=== PATIENT | male | born 1985 | race Caucasian/White ===

== ENCOUNTER → 2019-09-12 | Day surgery (SDC) | payer MEDICAID ==
[2019-09-08 11:54] VITALS: BMI 27.9
[~2019-09-12] MED LIST: LACTATED RINGERS 1,000 ML IV SCH; LIDOCAINE 1% (10MG/ML) FOR IV START INTRADERMA ONE; LIDOCAINE 1% INJ 10MG/ML (20 ML MDV) ONE; PROPOFOL 10 MG/ML 20 ML VIAL IV ONE
[2019-09-12 08:44] VITALS: TEMP 97.5
--- NOTE | 2019-09-12 09:28 | P.GSHP ---
History of Present Illness H&P Date: 09/12/19 Chief Complaint: Hypercoagulable state Patient here today for upper and lower endoscopy. Patient had a pulmonary embolism in August of this year. Here today for workup for possible source of the problem. Father had esophageal cancer. Patient without complaints. Denies rec adair bleeding or melena. Brother has a history of colon polyps. Past Medical History Past Medical History: Pulmonary Embolus (PE) Additional Past Medical History / Comment(s): PE September 2018-unknown reason, family hx. of polyps History of Any Multi-Drug Resistant Organisms: None Reported Additional Past Surgical History / Comment(s): wisdom teeth removed Past Anesthesia/Blood Transfusion Reactions: No Reported Reaction Smoking Status: Former smoker - Past Family History Brother(s) Family Medical History: Myocardial Infarction ([place]) Additional Family Medical History / Comment(s): [place] @26 Medications and Allergies Home Medications Medication Instructions Recorded Confirmed Type Rivaroxaban [Xarelto] 20 mg PO DAILY 09/08/19 09/12/19 History Allergies Allergy/AdvReac Type Severity Reaction Status Date / Time acetaminophen [From Vicodin] Allergy Nausea & Verified 09/08/19 11:37 Vomiting hydrocodone [From Vicodin] Allergy Nausea & Verified 09/08/19 11:37 Vomiting Surgical - Exam Vital Signs Temp Pulse Resp BP Pulse Ox 97.5 F L 68 16 150/91 100 09/12/19 08:42 09/12/19 08:42 09/12/19 08:42 09/12/19 08:42 09/12/19 08:42 Physical exam: General: Well-developed, well-nourished HEENT: Normocephalic, sclerae nonicteric Abdomen: Nontender, nondistended Extremities: No edema Neuro: Alert and oriented Assessment and Plan (1) Hypercoagulable state Current Visit: Yes Status: Acute Code(s): D68.59 - OTHER PRIMARY THROMBOPHILIA SNOMED Code(s): 58710208
--- NOTE | 2019-09-12 09:47 | P.PCN ---
Date of Procedure: 09/12/19 Procedure(s) Performed: PREOPERATIVE DIAGNOSIS: Hypercoagulable state POSTOPERATIVE DIAGNOSIS: Gastritis, diverticulosis, sigmoid colon polyp PROCEDURE: 1. EGD with biopsy 2. Colonoscopy with snare polypectomy ANESTHESIA: MAC SURGEON: Julio Anthony M.D. SPECIMENS: Antrum, sigmoid colon polyp ENDOSCOPIC PROCEDURE: The patient was on the endoscopy table in the left decubitus position. The Olympus gastroscope was inserted into the oropharynx and passed under direct visualization to the region of the third portion of the duodenum. From that point the scope was slowly withdrawn inspecting all surfaces carefully. There were no neoplastic inflammatory or polypoid lesions throughout the duodenum. The pylorus was widely patent. The stomach was carefully inspected. There was mild gastritis present. A biopsy of the antrum took place to rule out H. pylori. Retroflexion revealed a normal hiatus. The esophagus was then carefully examined. There were no neoplastic inflammatory or polypoid lesions throughout the visualized esophagus. The patient was kept on the endoscopy table in the left decubitus position. The Olympus colonoscope was inserted into the anus and passed under direct visualization to the base of the cecum. The appendiceal orifice was visualized. From that point the scope was slowly withdrawn inspecting all surfaces carefully. There were no neoplastic inflammatory or polypoid lesions throughout the cecum, ascending, transverse, and descending colon. In the sigmoid at 35 cm a pedunculated polyp was identified and removed using the snare with cautery technique. The remainder of the sigmoid and rectum appeared normal. There was mild diverticulosis. Digital rectal examination was normal. The patient was taken to the recovery room in stable condition per anesthesia guidelines. RECOMMENDATIONS: Await biopsy results. Continue workup of the patient's recent pulmonary embolism.
[2019-09-12 10:10] VITALS: BP 127/85; PULSE 64; RESP 18
== END ==
LOC: ORWHC2ENDO 08:31
PROVIDERS: ATTEND Surgery
DX: D12.5 Benign neoplasm of sigmoid colon (principal); K57.30 Diverticulosis of large intestine without perforation or abscess without bleeding; K29.50 Unspecified chronic gastritis without bleeding; Z86.711 Personal history of pulmonary embolism; Z87.891 Personal history of nicotine dependence; Z82.49 Family history of ischemic heart disease and other diseases of the circulatory system; Z80.0 Family history of malignant neoplasm of digestive organs; Z79.01 Long term (current) use of anticoagulants; Z88.5 Allergy status to narcotic agent
CPT/HCPCS: 88305; 45385; 43239; J2001; J2704